=== PATIENT | female | born 1970 | race Caucasian/White ===

== ENCOUNTER 2017-05-18 13:20 | Emergency (ER) | payer OTHER ==
[~2017-05-18] VITALS: Ht 165.1 cm; Wt 85.0 kg
[2017-05-18 13:22] VITALS: BP 140/88; PULSE 100; RESP 20; TEMP 98.3; O2SAT 99
--- NOTE | 2017-05-18 14:35 | PD ---
HPI Chief Complaint: Injury Time Seen by Provider: 14:20 Travel History International Travel<30 days: No Contact w/Intl Traveler<30days: No Traveled to known affect area: No History of Present Illness HPI 46-year-old female presents the emergency department with injury to the left ankle and dorsal foot weeks prior to arrival. Patient states he was at a concert in her foot was caught under a bleacher she was pushed forward, causing a hyperextension injury. Patient is complaining of ongoing swelling and tenderness to the anterior ankle and anterior proximal dorsal foot. She states worse with ambulation. She has been wrapping it with a pressure dressing with some relief. She has not sought medical attention prior to this she has no numbness or tingling. She states her pain is a 4/10. It is worse with ambulation. She has no known drug allergies. PFSH Past Medical History ?: Not Social History Alcohol Use: Yes Tobacco Use: No Substance Use: No Allergies-Medications (Allergen,Severity, Reaction): Coded Allergies: No Known Allergies (Unverified , 05/18/17) Review of Systems Except as stated in HPI: all other systems reviewed are Neg General / Constitutional: No: Fever Eyes: No: Visual changes HENT: No: Headaches Cardiovascular: No: Chest Pain or Discomfort Respiratory: No: Shortness of Breath Gastrointestinal: No: Abdominal Pain Genitourinary: No: Dysuria Musculoskeletal: Positive: Arthralgias, Limited ROM (see history of present illness), Pain Skin: No Rash Neurologic: No: Weakness Psychiatric: No: Depression Endocrine: No: Polydipsia Hematologic/Lymphatic: No: Easy Bruising Physical Exam Narrative GENERAL: Patient appears in no acute distress. SKIN: Warm and dry. Normal color. Normal turgor. She does have a small area of ecchymosis to the anterior lower ramos consistent with her injury. No significant swelling noted. HEAD: Atraumatic. Normocephalic. EYES: Pupils equal and round. No scleral icterus. No injection or drainage. ENT: No nasal bleeding or discharge. Mucous membranes pink and moist. Pharynx is clear. Airway is patent. NECK: Trachea midline. Supple and nontender. CARDIOVASCULAR: Regular rate and rhythm. RESPIRATORY: No accessory muscle use. Clear to auscultation. Breath sounds equal bilaterally. MUSCULOSKELETAL: Extremities without clubbing, cyanosis, or edema. No obvious deformities. Left ankle appears unremarkable. Patient does have an area of ecchymosis. Patient has tenderness with palpation along the proximal medial dorsal foot and anterior lower ramos/ankle. Range of motion is intact, slightly limited by pain specifically with dorsiflexion. No other significant findings are noted. NEUROLOGICAL: Awake and alert. No obvious cranial nerve deficits. Motor grossly within normal limits. Five out of 5 muscle strength in the arms and legs. Normal speech. PSYCHIATRIC: Appropriate mood and affect; insight and judgment normal. Data Data Last Documented VS Vital Signs Date Time Temp Pulse Resp B/P Pulse Ox O2 Delivery O2 Flow Rate FiO2 05/18/17 13:22 98.3 100 20 140/88 99 Room Air Orders Ankle, Complete ([id number]) (05/18/17 14:24) Foot, Limited (2vws) (05/18/17 14:24) [facility] Medical Decision Making Medical Screen Exam Complete: Yes Emergency Medical Condition: Yes Differential Diagnosis Fall on steps. Left ankle contusion. Left ankle sprain. Tenosynovitis. Possible fracture. Narrative Course Patient is medically stable at time of exam. X-ray of the left foot and ankle are ordered. X-ray shows no obvious fracture dislocation per radiologist. Patient is placed in an Leif bandage for comfort. Patient is given ibuprofen 600 mg 4 times a day #40. Patient is to ice the area frequently Patient should follow-up with her primary care physician if symptoms continue to persist or worsen in any way. Diagnosis Primary Impression: Contusion of left ankle, initial encounter Additional Impression: Tenosynovitis of ankle Referrals: Primary Care Physician Patient Instructions: Contusion in Adults (ED), General Instructions, Lower Extremity Tenosynovitis (DC) Additional Instructions: X-ray shows no obvious fracture dislocation per radiologist. Patient is placed in an Leif bandage for comfort. Patient is given ibuprofen 600 mg 4 times a day #40. Patient is to ice the area frequently Patient should follow-up with her primary care physician if symptoms continue to persist or worsen in any way. Med/Other Pt SpecificInfo: Prescription(s) given Disposition: 01 DISCHARGE HOME Condition: Stable Nehemias Smith May 18, 2017 14:35
[2017-05-18] MEDS ORDERED: IBUP-232 PO (14:58)
--- NOTE | 2017-05-18 15:22 | RADRPT ---
EXAM DATE/TIME: 05/18/2017 14:36 [facility] COMPARISON: No previous studies available for comparison. INDICATIONS : Left foot and ankle pain after falling MEDICAL HISTORY : None. SURGICAL HISTORY : None. ENCOUNTER: Initial ACUITY: 1 day PAIN SCORE: 6/10 LOCATION: Left foot FINDINGS: Two view examination of the left foot demonstrates no soft tissue swelling, dislocation, or fracture. The calcaneus is intact. Bony mineralization is normal. CONCLUSION: Normal examination for a patient of this age. Otto Marinelli MD on May 18, 2017 at 15:19 Board Certified Radiologist. This report was verified electronically.
--- NOTE | 2017-05-18 15:23 | RADRPT ---
EXAM DATE/TIME: 05/18/2017 14:37 [facility] COMPARISON: No previous studies available for comparison. INDICATIONS : Left foot and ankle pain after falling MEDICAL HISTORY : None. SURGICAL HISTORY : None. ENCOUNTER: Initial ACUITY: 1 day PAIN SCORE: 6/10 LOCATION: Left ankle FINDINGS: Three view exam was performed of the left ankle. The bony structures are in normal alignment. No ev idence of fracture, dislocation, or soft tissue swelling. The ankle mortise is intact. No radiopaqu e foreign bodies are seen. Bony mineralization is normal. CONCLUSION: Unremarkable examination of the left ankle. Otto Marinelli MD on May 18, 2017 at 15:20 Board Certified Radiologist. This report was verified electronically.
== END 2017-05-18 15:12 | disposition home or self-care (01) ==
LOC: NEPA 13:20
DX: S90.02XA Contusion of left ankle, initial encounter (principal); M65.9 Synovitis and tenosynovitis, unspecified; W23.1XXA Caught, crushed, jammed, or pinched between stationary objects, initial encounter; Y92.89 Other specified places as the place of occurrence of the external cause
CPT/HCPCS: 73610; 73620; 99283